=== PATIENT | male | born 1935 | race Caucasian/White ===

== ENCOUNTER 2016-07-23 19:00 | Emergency (ER) | payer BC, MEDICARE ==
[2016-07-23 22:38] LABS: HEMOGLOBIN 11.4 gm/dl (14.0-17.5); RED BLOOD COUNT 4.48 M/UL (4.20-5.50); WHITE BLOOD COUNT 10.7 K/UL (4.5-11.0)
[2016-07-23 22:53] LABS: BUN/CREATININE RATIO 12 (0-10)
== END 2016-07-24 03:53 | disposition home or self-care (01) ==
LOC: ER1 19:00
PROVIDERS: Emergency Medicine
DX: R00.2 Palpitations (principal); R06.02 Shortness of breath; M79.1 Myalgia; R60.0 Localized edema; F17.200 Nicotine dependence, unspecified, uncomplicated
CPT/HCPCS: 36415; 71020; 72131; 80053; 81001; 82550; 82553; 83690; 83874; 83880; 84484; 85025; 85379; 85610; 85730; 87086; 93005; 96360; 96361; 99285; J7050; Q9963